=== PATIENT | male | born 1990 | race Caucasian/White ===

== ENCOUNTER 2018-07-20 10:44 | Outpatient (CLI) | payer BC ==
[2018-07-20] MEDS ORDERED: Gadobenate Dimeglumine 529 MG/1 ML (20ML VIAL) ONE (11:21)
--- NOTE | 2018-07-20 15:39 | MRI ---
CERVICAL SPINE MRI WITH AND WITHOUT CONTRAST: HISTORY: Arnold-Chiari syndrome. COMPARISON: None. FINDINGS: Appropriate T1 marrow signal intensity of the cervical vertebra. Vertebral body height is maintained. There is no fracture. No significant STIR hyperintensity to suggest vertebral body edema or ligamentous injury. Visualized brain parenchyma, cervicomedullary junction, cervical cord and the upper thoracic cord hav e a normal size and signal intensity. On the postcontrast images, there is no abnormal enhancement with regards to the vertebral bodies. Th ere is no abnormal enhancement in the visualized spinal cord or brain parenchyma. The cerebellar tonsils appear to have a normal appearance and approximately 3 mm below the foramen ma gnum, within normal limits. C2: No significant central canal stenosis or neural foraminal narrowing. C3-C4: Minimal central disc bulge. No significant central canal stenosis or neural foraminal narrowin g. C4-C5: Central disc bulge abuts the thecal sac. There is mild deformity the midline thecal sac and ce rvical cord. Anterior subarachnoid space is maintained. Mild central canal stenosis. Neural foramina are patent. C5-C6: No significant central canal stenosis or neural foraminal narrowing. C6-C7: No significant central canal stenosis or neural foraminal narrowing. C7-T1: No significant central canal stenosis or neural foraminal narrowing. IMPRESSION: 1. No significant central canal stenosis or neural foraminal narrowing throughout the cervical spine. 2. Presence of the cerebellar tonsils into the foramen magnum. Refer to separate brain MRI report for further detail. Transcribed Date/Time: 07/20/2018 3:53 PM
--- NOTE | 2018-07-20 16:19 | MRI ---
Exam: Brain MRI with and without contrast HISTORY: Arnold Chiari I syndrome. Right arm pain and tingling. Headache. COMPARISON: None FINDINGS: Gradient echo sequence: No hemorrhage Calvarium: Appropriate T1 marrow signal intensity Midline brain parenchyma: Unremarkable Cerebrum:No parenchymal mass, mass effect or midline shift. Brain volume, age-appropriate. Cortical g ray-white matter differentiation preserved. No significant T2 or FLAIR white matter hyperintensities. Ventricles: No evidence of hydrocephalus. Sinuses and mastoid air cells: Partial opacification left mastoid air cells. Diffusion: Central arterial flow is maintained. Absent restricted diffusion. Postcontrast images: No pathologic enhancement of the brain parenchyma. Based on the sagittal T1-weighted images, the cerebellar tonsils do not have a peg shape.. There is a pproximately 4.6 mm of downward presence of the cerebellar tonsil into the foramen magnum, which is within normal limits. IMPRESSION: Approximately 4.6 mm of downward presence of the cerebellar tonsils into the foramen magnum, compatib le cerebellar tonsillar ectopia. Transcribed Date/Time: 07/20/2018 4:26 PM
== END 2018-07-20 10:45 | disposition home or self-care (01) ==
LOC: TBSIIMAG 10:44
PROVIDERS: ATTEND Neurological Surgery
DX: Q07.00 Arnold-Chiari syndrome without spina bifida or hydrocephalus (principal); J35.8 Other chronic diseases of tonsils and adenoids
CPT/HCPCS: 70553; 72156; A9577